=== PATIENT | female | born 1940 | race Caucasian/White ===

== ENCOUNTER 2017-06-23 00:22 | Emergency (ER) | payer OTHER ==
[2017-06-23 00:31] VITALS: BP 109/77; PULSE 70; TEMP 98.1; BMI 25.4
[2017-06-23] MEDS ORDERED: SILVER SULFADIAZINE 1% TOP CREAM 50 GM JAR TP ONE (00:35)
--- NOTE | 2017-06-23 00:37 | PDOC ---
History of Present Illness - General Chief Complaint: Burn Stated Complaint: BURNED RIGHT HAND Time Seen by Provider: 06/23/17 00:32 History Source: Patient Exam Limitations: No Limitations - History of Present Illness Initial Comments: 06/23/17 00:34 This is a 76-year-old female who comes in complaining of a burn to her right hand. Patient did approximately an hour prior to coming to the ED. Patient denies any other complaints. PAST MEDICAL HISTORY: no significant history PAST SURGICAL HISTORY: no significant history FAMILY HISTORY: no pertinant history SOCIAL HISTORY: Pt lives with family and is employed. MEDICATIONS: reviewed ALLERGIES: As per nursing notes Review of Systems General: No fevers or chills, no weakness, no weight loss HEENT: No change in vision. No sore throat,. No ear pain CardioVascular: No chest pain or shortness of breath Respiratory:No cough, or wheezing. Gastrointestinal: no nausea, vomitting, diarrhea or constipation, No rectal bleeding Genitourinary: No dysuria, hematuria, or frequency Musculoskeletal: No joint or muscle pain or swelling, burn to right hand Neurologic: No headache, vertigo, dizziness or loss of consciousness Psychiatric: nor depression Skin: No rashes or easy bruising Endocrine: no increased thirst or abnormal weight change Allergic: no skin or latex allergy All other systems reviewed and normal GENERAL: The patient is awake, alert, and fully oriented, in no acute distress. HEAD: Normal with no signs of trauma. EYES: Pupils equal, round and reactive to light, extraocular movements intact, sclera anicteric, conjunctiva clear. EXTREMITIES: Right hand there is primarily first degree burn to the home of the hand and dorsum of the hand there is a few small areas that are second degree with some blistering. There is no evidence of infection neurovascular is intact. NEUROLOGICAL: Normal speech, normal gait. grossly intact PSYCH: Normal mood, normal affect. SKIN: Warm, Dry, normal turgor, no rashes or lesions noted. Assessment and plan: This 76-year-old female with primarily first-degree with very small area of second degree. Silvadene was put on the burn and patient hand was wrapped a sheet and discharged home will follow-up with primary care doctor as needed Past History - Past Medical History Allergies/Adverse Reactions: Allergies Allergy/AdvReac Type Severity Reaction Status Date / Time No Known Allergies Allergy Verified 06/23/17 00:26 Home Medications: Ambulatory Orders Unobtainable [Unobtainable] 06/23/17 COPD: No HTN: Yes - Suicide/Smoking/Psychosocial Hx Smoking History: Never smoked Have you smoked in the past 12 months: No Information on smoking cessation initiated: No Hx Alcohol Use: No Drug/Substance Use Hx: No Substance Use Type: None *Physical Exam - Vital Signs Last Vital Signs Temp Pulse Resp BP Pulse Ox 98.1 F 70 16 109/77 100 06/23/17 00:28 06/23/17 00:28 06/23/17 00:28 06/23/17 00:28 06/23/17 00:28 *DC/Admit/Observation/Transfer Diagnosis at time of Disposition: Burn of right hand including fingers Qualifiers: Encounter type: initial encounter Burn degree: superficial (1st degree) Qualified Code(s): T23.101A - Burn of first degree of right hand, unspecified site, initial encounter; T23.131A - Burn of first degree of multiple right fingers (nail), not including thumb, initial encounter; T23.131A - Burn of first degree of multiple right fingers (nail), not including thumb, initial encounter - Discharge Dispostion Disposition: HOME Condition at time of disposition: Stable Admit: No - Referrals Referrals: Sam Barrios V [Primary Care Provider] - - Patient Instructions Printed Discharge Instructions: How to Take Care of a Burn Additional Instructions: U can replace the Silvadene once a day until the blistered areas have scabbed over. Return to the emergency department immediately with ANY new, persistent or worsening symptoms. Continue any medications as previously prescribed by your physician. You should follow up with your primary doctor as soon as possible regarding today's emergency department visit. . Please make sure your doctor reviews the results of your emergency evaluation. Thank you for coming to the Emergency Department today for your care. It was a pleasure to see you today. Please note that your evaluation is INCOMPLETE until you follow-up with your doctor. - Post Discharge Activity
[2017-06-23] MEDS ORDERED: SILVER SULFADIAZINE 1% TOP CREAM 50 GM JAR TP STA (00:38)
[2017-06-23] MEDS ORDERED: DIPHTH,PERTUSS(ACELL),TET 0.5 ML DISP.SYRIN IM ONE (00:44)
== END 2017-06-23 00:50 | disposition home or self-care (01) ==
LOC: FER 00:22
PROC: 3E0234Z Introduction of Serum, Toxoid and Vaccine into Muscle, Percutaneous Approach (ICD-10-PCS; principal; 2017-06-23)
PROC: 2W2EX4Z Dressing of Right Hand using Bandage (ICD-10-PCS; 2017-06-23)
DX: T23.101A Burn of first degree of right hand, unspecified site, initial encounter (principal); T23.131A Burn of first degree of multiple right fingers (nail), not including thumb, initial encounter; X08.8XXA Exposure to other specified smoke, fire and flames, initial encounter; Y93.89 Activity, other specified; Y92.9 Unspecified place or not applicable; I10 Essential (primary) hypertension
CPT/HCPCS: 90715; 99281-25